=== PATIENT | female | born 2000 | race Caucasian/White ===

== ENCOUNTER 2025-04-06 19:35 | Inpatient (IN) ==
[2025-04-06] MEDS ORDERED: miSOPROStoL 200 MCG TABLET BC PRN (19:42)
[2025-04-06] MEDS ORDERED: METHYLERGONOVINE 0.2 MG/ML VIAL IM PRN (19:42)
[2025-04-06] MEDS ORDERED: OXYTOCIN 10 UNIT/ML VIAL IM PRN (19:42)
[2025-04-06] MEDS ORDERED: CALCIUM CARBONATE CHEW 500 MG TABLET PO PRN (19:42)
[2025-04-06] MEDS ORDERED: LABETALOL 20 MG/4 ML SYRINGE IVP PRN ×3 (19:42)
[2025-04-06] MEDS ORDERED: lidocaine 1% 20 ML MDV ID PRN (19:42)
[2025-04-06] MEDS ORDERED: LACTATED RINGERS 1,000 ML IV PRN (19:42)
[2025-04-06] MEDS ORDERED: ONDANSETRON ODT 4 MG TABLET PO PRN (19:42)
[2025-04-06] MEDS ORDERED: NIFEdipine 10 MG CAPSULE PO PRN (19:42)
[2025-04-06] MEDS ORDERED: TERBUTALINE 1 MG/ML VIAL SUBQ PRN (19:42)
[2025-04-06] MEDS ORDERED: miSOPROStoL 200 MCG TABLET PR PRN (19:42)
[2025-04-06] MEDS ORDERED: OXYTOCIN/SODIUM CHLORIDE 500 ML IV PRN (19:42)
[2025-04-06] MEDS ORDERED: TRANEXAMIC ACID IN NACL 1,000 MG/100 ML BAG IV PRN (19:42)
[2025-04-06] MEDS ORDERED: hydrALAZINE INJ 20 MG/ML VIAL IVP PRN (19:42)
[2025-04-06] MEDS ORDERED: diphenhydrAMINE 25 MG CAPSULE PO PRN (19:42)
[2025-04-06] MEDS: SODIUM CHLORIDE FLUSH 0.9% 10 ML SYRINGE IVP SCH (20:20)
[2025-04-06 20:34] LABS: BASOPHILS % (AUTO) 0.2 %; EOSINOPHILS # (AUTO) 0.2 10^3/uL (0.0-0.7); EOSINOPHILS % (AUTO) 1.5 %; HCT - HEMATOCRIT 35.5 % (37.0-47.0); HGB - HEMOGLOBIN 11.5 g/dL (12.0-16.0); LYMPHOCYTES # (AUTO) 2.1 10^3/uL (1.5-3.5); LYMPHOCYTES % (AUTO) 16.7 %; MEAN CORPUSCULAR HEMOGLOBIN 28.3 pg (27.0-31.0); MEAN CORPUSCULAR HGB CONC 32.4 g/dL (32.0-36.0); MEAN CORPUSCULAR VOLUME 87.4 fL (81.0-99.0); MEAN PLATELET VOLUME 11.7 fL (7.9-10.8); MONOCYTES # (AUTO) 0.9 10^3/uL (0.0-1.0); MONOCYTES % (AUTO) 6.9 %; NEUTROPHILS # (AUTO) 9.3 10^3/uL (1.5-6.6); NEUTROPHILS % (AUTO) 74.3 %; PLT - PLATELET COUNT 251 10^3/uL (130-450); RED BLOOD COUNT 4.06 10^6/uL (4.20-5.40); RED CELL DISTRIBUTION WIDTH 15.3 % (12.0-15.0); WHITE BLOOD COUNT 12.5 x10^3/uL (4.8-10.8)
--- NOTE | 2025-04-06 20:44 | HISTORY & PHYSICAL EXAMINATION ---
Admit History Visit Reason Visit Reason: Other (Induction of labor) Smoking Status: Former smoker Other Maternal History Other Maternal History: HPI: Gisella is a 24 yo at 38w0d who is admitted for induction of labor. has been complicated by IUGR noted on US on 03/10, EFW 6.5%tile. She had a follow up growth US on 04/04 with EFW measuring 18%tile, but BPD, HC, and FL still measuring < 10th%tile, UA dopplers were obtained with elevated doppler at the abdominal cord insertion. Gisella was counseled on repeating UA doppler study and if normal, delaying IOL, vs proceeding with IOL now and she would like to proceed now. Today, Gisella is feeling well. Denies contractions, loss of fluid, vaginal bleeding, and reports good movement. Her is at bedside, flew in from [place] today to be here for IOL, will be here for 1 week. monitoring form, copied from record: LMP: 06/20/2024 CARMEN by LMP: 03/27/2025 US: on 09/15/2024 at 9 wks with CARMEN of 04/20/2025 NOT c/w LMP dating. Final CARMEN: 04/20/2025 IUGR 6.6%tile on 03/10, repeat growth in 3-4 wks. Weekly CRISTÓBAL/UA dopplers/NST. Plan for 38-39wk delivery. Baseline pr:cr elevated at 0.3, no elevated blood pressured. Repeated on 03/16, 0.2. Pre- Weight: 140 BMI: 24.7 Blood type: O- Rhogam given 01/26 mls Antibody: negative CBC: PLT 288 H/H 13.4/39.0 RUB: NOT immune VZV:immune HBsAg: negative HepC: NR RPR/AB-EIA: NR HIV: NR PAP:09/27/24-normal GC/CT: negative HSV: denies Genetic testing:negative Covid: declined/out of season Flu: received this season RSV: 02/23/25 FAS: 2 Placenta: posterior without previa Cord: 3VC CRISTÓBAL: 11.1cm 11.8% EFW: 708g 22.1% 50gm OGCT: 132 3HR GTT: TDAP: 01/26/25 mls Breast Pump: 01/26 Antibody screen: 3rd trimester H/H 10.9/34.2 PLT 305 3rd trimester RPR NR RSV: 02/23/25 GBS: negative Delivery plan: vag del Contraception: declines PE: Vitals signs reviewed in [facility] Gen: NAD Chest: non labored respirations Abd: gravid, non tender. Ext: no LE edema SVE: 1.5/20/-3 Bedside US: cephalic presentation confirmed monitoring: FHTs: 130s bpm baseline, + accel, - decel, mod variability [place]: rare FHTs: Cat 1 Labs: CBC reviewed, CMP and T&S pending A/P: 24 yo at 38w0d admitted for IOL: - IUGR: most recent EFW 2808g, 18%tile, previously 6.5%tile, but with elevated UA doppler. - GBS neg - Rh neg - Rubella non immune - Will start IOL with PO misoprostol 25mcg q 4 hrs. - Pain management per her request, we have discussed options. Abby Aaron MD HPI Current : Vital Signs Temperature 98.1 F 04/06/25 19:57 Pulse Rate 83 04/06/25 19:57 Respiratory Rate 18 04/06/25 19:57 Blood Pressure 129/68 04/06/25 19:57 NST Procedure NST Procedure: NST Procedure Start Time 10:11 Stop Time 10:43 Meds/Allgy Home Medications Ambulatory Orders Medication Instructions Recorded Confirmed vits no.126-ferrous fum tab PO QDAY 12/28/24 04/06/25 28 mg iron-folic acid 800 mcg tablet (Classic ) Allergies Allergies Allergy/AdvReac Type Severity Reaction Status Date / Time No Known Drug Allergies Allergy Verified 03/23/25 11:38 PFSH Active Problems All Active Problems (Updated 04/06/25 @ 20:51 by Abby Aaron MD) Intrauterine growth restriction (IUGR) affecting care of mother, third trimester, single gestation (Acute) Rh negative state in antepartum period (Acute) Supervision of high risk in third trimester (Acute) Surgical History Surgical History [place] teeth extracted Family History Family History (Updated 12/28/24 @ 14:46 by Nadia Galvan RN) Grandfather Diabetes Brother Asthma Mother Depressed Social History Social History Smoking Status: Former smoker Second hand tobacco smoke exposure: No Do you dip or chew tobacco?: No Do you vape?: No Patient requests smoking cessation consult: No Initiate information on smoking cessation: No Living arrangement: At home Living Condition: With spouse/s.o. Relationship: Level: Independent Do you feel safe in your home environment?: Yes Suffered physical, verbal, emotional, or financial abuse?: No ETOH Use: None Substance Use: denies use Are you sexually active?: Yes Control Method: None Occupation: [employer] Service: Yes Dates of Service: Current POLST Patient has POLST: No Physical Abdominal Exam Vital Signs: Temp Pulse Resp BP 98.1 F 83 18 129/68 04/06/25 19:57 04/06/25 19:57 04/06/25 19:57 04/06/25 19:57 Plan for Labor Plan For Labor I expect patient to be DC'd or transferred within 96 hours.: Yes Conclusion/Plan Lab Results 04/06/25 20:18
[2025-04-06 21:00] LABS: ALBUMIN 3.5 g/dL (3.2-5.5); ALBUMIN/GLOBULIN RATIO 1.2 (1.0-2.2); BILIRUBIN,TOTAL 0.2 mg/dL (0.2-1.0); CREATININE 0.6 mg/dL (0.6-1.3); POTASSIUM 3.5 mmol/L (3.5-4.5); TOTAL PROTEIN 6.5 g/dL (6.4-8.9)
[2025-04-06] MEDS: miSOPROStoL 100 MCG TABLET PO SCH (21:07)
--- NOTE | 2025-04-07 08:01 | PROVIDER PROGRESS NOTE ---
Labor Progress Note Uterine Monitoring Uterine Monitoring Mode: positive External toco Contraction Frequency (min/apart): irregular Monitoring Monitor Mode: positive External ultrasound Heart Rate Baseline: 135 Heart Rate Variability: positive Moderate (6-25 bmp) Accelerations: positive Present, 15x15 Decelerations: positive None Labor Progress Note Labor Progress Note/Additional Text: Patient doing well, no acute complaints. Feeling somewhat crampy, no regular contractions. Category 1 tracing. Received 3 doses of misoprostol overnight with last dose at 0510. Callum irregularly. Continue cervical ripening.
[2025-04-07] MEDS: miSOPROStoL 100 MCG TABLET SL SCH (09:29)
--- NOTE | 2025-04-07 11:15 | PHARMACY PROGRESS NOTE ---
Best Possible Medication History Admit Date and Time: 04/06/251941 Home Medications Medication Instructions Recorded Confirmed Type vits no.126-ferrous fum 1 tab PO DAILY 04/07/25 History 28 mg iron-folic acid 800 mcg tablet (Classic ) Processed by: Pharmacy Medications reviewed in ED?: No Medication History completed: Yes Patient Interview: Completed Secondary Source(s): Pharmacy records and Insurance records [facility] Statement: As the person ultimately responsible for medication therapy, providers are able to order a medication from an existing home medication list in [facility] via the "Reconcile Routine" prior to Confirmation of that medication by shipping support. Such practice is discouraged except when the physician, in their clinical judgment, deems that a medical need exists for a medication without regard to previous use.
--- NOTE | 2025-04-07 21:38 | PROVIDER PROGRESS NOTE ---
Labor Progress Note Labor Progress Note Labor Progress Note/Additional Text: FHT 135 beats minute baseline, moderate variability, accelerations present, no decelerations. [place]wey: Irregular Category 1. Status post 6 doses misoprostol. Currently . Consented to cervical ripening balloon which was then placed without complication. 80 mL internally, 80 mL externally with Cook balloon. Plan to start oxytocin. Anticipate amniotomy after removal. Anticipate . Epidural at patient request.
[2025-04-07] MEDS: fentaNYL 100 MCG/2 ML VIAL IVP PRN (21:46)
[2025-04-07] MEDS: ACETAMINOPHEN 500 MG TABLET PO PRN (21:50)
[2025-04-07] MEDS: LACTATED RINGERS 1,000 ML IV SCH (22:28)
[2025-04-07] MEDS: OXYTOCIN/SODIUM CHLORIDE 500 ML IV SCH (22:29)
[2025-04-07] MEDS ORDERED: LIDOCAINE 2%-EPI 1:100000 20 ML MDV ONE (23:20)
[2025-04-07] MEDS ORDERED: ROPIVACAINE 0.2% 200 MG/100 ML BAG EP ONE (23:21)
[2025-04-07] MEDS ORDERED: ePHEDrine 50 MG/ML VIAL IVP PRN (23:49)
--- NOTE | 2025-04-07 23:52 | ANESTHESIA PROCEDURE NOTE ---
Pre-Anesthesia VS, & Labs Diagnosis Surgical Diagnosis:: Active labor Procedure Procedure: vaginal delivery Vitals Vital Signs: Temp Pulse Resp BP 36.7 C 83 18 129/68 04/06/25 19:57 04/06/25 19:57 04/06/25 19:57 04/06/25 19:57 NPO NPO: Other (clear liquids) Is Patient ?: Yes Estimated Due Date:: 04/20/25 Lab Results Current Lab Results: Laboratory Tests 04/06/25 20:18: WBC 12.5 H, RBC 4.06 L, Hgb 11.5 L, Hct 35.5 L, MCV 87.4, MCH 28.3, MCHC 32.4, RDW 15.3 H, Plt Count 251, MPV 11.7 H, Neut # (Auto) 9.3 H, Lymph # (Auto) 2.1, Emmons # (Auto) 0.9, Eos # (Auto) 0.2, Baso # (Auto) 0.0, Absolute Nucleated RBC 0.00, Nucleated RBC % 0.0, Sodium 136, Potassium 3.5, Chloride 106, Carbon Dioxide 22, Anion Gap 8.0, BUN 8, Creatinine 0.6, Estimated GFR (MDRD) 124, Glucose 124 H, Calcium 9.0, Total Bilirubin 0.2, AST 14, ALT 10, Alkaline Phosphatase 166 H, Total Protein 6.5, Albumin 3.5, Globulin 3.0, Albumin/Globulin Ratio 1.2, Blood Type O NEGATIVE, Antibody Screen NEGATIVE Lab results reviewed: Yes 04/06/25 20:18 04/06/25 20:18 Meds/Allgy Home Medications Ambulatory Orders Medication Instructions Recorded Confirmed vits no.126-ferrous fum 1 tab PO DAILY 04/07/25 28 mg iron-folic acid 800 mcg tablet (Classic ) Allergies Allergies Allergy/AdvReac Type Severity Reaction Status Date / Time No Known Drug Allergies Allergy Verified 03/23/25 11:38 PFSH Active Problems All Active Problems Intrauterine growth restriction (IUGR) affecting care of mother, third trimester, single gestation (Acute) Supervision of high risk in third trimester (Acute) Rh negative state in antepartum period (Acute) Surgical History Surgical History [place] teeth extracted Family History Family History (Updated 12/28/24 @ 14:46 by Nadia Galvan RN) Grandfather Diabetes Brother Asthma Mother Depressed Social History Social History Smoking Status: Former smoker Second hand tobacco smoke exposure: No Do you dip or chew tobacco?: No Do you vape?: No Patient requests smoking cessation consult: No Initiate information on smoking cessation: No Living arrangement: At home Living Condition: With spouse/s.o. Relationship: Level: Independent Do you feel safe in your home environment?: Yes Suffered physical, verbal, emotional, or financial abuse?: No ETOH Use: None Substance Use: denies use Are you sexually active?: Yes Control Method: None Occupation: [employer] Service: Yes Dates of Service: Current POLST Patient has POLST: No Anesthesia Exam (Expanded) Exam General: Alert, Oriented x3 and Cooperative Dental: WNL Mouth Openin Fingerbreadth Neck Mobility: Normal Mallampati classification: II Thyromental Distance: 4-6 cm Plan Plan Anesthesia Type: Epidural Consent for Procedure(s) Verified and Reviewed: Yes Code Status: Attempt Resuscitation ASA Classification ASA classification: 2-Mild systemic disease Is this case an emergency?: No
[2025-04-08] MEDS: ROPIVACAINE 0.2% 200 MG/100 ML BAG EP PRN (07:27)
--- NOTE | 2025-04-08 10:29 | PROVIDER PROGRESS NOTE ---
Labor Progress Note Labor Progress Note Labor Progress Note/Additional Text: Patient comfortable with epidural. Consents amniotomy which was performed with a small amount of fluid and blood, likely from cervical ripening balloon. Prior to amniotomy, heart tracing 145 beats per baseline, moderate ability, accelerations present, no decelerations. Contractions every 2 to 4 minutes category 1. Immediately after amniotomy, had a variable deceleration, but resolved with position change. If these become persistent, will consider amnioinfusion. SVE: /-2
[2025-04-08] MEDS: ONDANSETRON 4 MG/2 ML VIAL IVP PRN (10:31)
[2025-04-08] MEDS: SODIUM CHLORIDE FLUSH 0.9% 10 ML SYRINGE IVP PRN (10:32)
[2025-04-08] MEDS ORDERED: SIMETHICONE CHEW 80 MG TABLET PO PRN (17:23)
[2025-04-08] MEDS ORDERED: CALCIUM CARBONATE CHEW 500 MG TABLET PO PRN (17:23)
[2025-04-08] MEDS ORDERED: ONDANSETRON 4 MG/2 ML VIAL IVP PRN (17:23)
--- NOTE | 2025-04-08 17:28 | DELIVERY NOTE ---
Delivery Note Labor Labor: positive Augmented by ARM and Induced by oxytocin Infant Delivery Method Delivery Method: positive Spontaneous vaginal delivery Cervical Ripening Method Cervical Ripening Method: positive Balloon device and Misoprostil Presentation Presentation: positive OA - occiput anterior Nuchal Cord Nuchal Cord: positive Reduced Amniotic Fluid Description Amniotic Fluid Description: positive Clear Laceration Laceration: positive Labial (Right) Suture Suture Type: positive Vicryl Suture Size: positive 4-0 Delivery Outcome Delivery Outcome: positive Livebirth [place]: positive Placed in direct skin contact with mother, Bulb syringe and Jackson used [place] sex: positive Female Cord Cord: positive 3 vessels Placenta Placenta: positive Intact Estimated Blood Loss Estimated Blood Loss (in cc): 400 Post Delivery Events Post Delivery Events: positive No post delivery events Delivery Comments (Free Text/Narrative) Delivery Comments (Free Text/Narrative): Preoperative Diagnoses 38 weeks gestation Intrauterine growth restriction Postoperative Diagnoses Same Status post spontaneous vaginal delivery Delivered live morris Summary Patient admitted for induction of labor for growth restriction with abnormal Dopplers. She was started on misoprostol and received 6 doses. She then received a cervical ripening balloon with oxytocin. She received an epidural for pain control. After removal, she was 6 cm and had amniotomy. Immediately after amniotomy, she had a short course of repetitive variable decelerations that resolved with position changes. IUPC was placed for hypotonic uterine contractions. She progressed until 9 cm and had another round of late decelerations and oxytocin was stopped. She was checked and found to be complete and started to push. While pushing, baby's heart rate recovered, but would have decelerations while pushing. Oxytocin was restarted as contractions spaced out. Delivery Summary: Patient was placed in the dorsal lithotomy position. Upon maternal pushing the head was delivered atraumatically followed by the anterior shoulder, posterior shoulder, then the remainder of the 's body. Nuchal cord was reduced. A female was delivered with APGARS of 7 at 1 minute and 9 at 5 minutes. The infant was placed on its mother's chest . After the cord finished pulsating, the umbilical cord was clamped times two and cut. The placenta delivered intact with three vessel cord. Placenta was sent to pathology. Thirty units of Pitocin were added to the IV fluid and allowed to run freely. Uterine massage was performed until uterus was deemed firm. Upon inspection of the perineum, the patient had a right labial laceration that was bleeding and repaired with a running suture of 4-0 Vicryl. Upon re- inspection the patient was hemostatic. Uterus again massaged and found to be firm. Needle and sponge counts were correct. Patient was stable and allowed to recover in L&D room. was stable and remained in room with mother. weight : 2496 g
[2025-04-08] MEDS: IBUPROFEN 600 MG TABLET PO SCH (18:20)
[2025-04-08] MEDS: WITCH HAZEL/GLYCERIN 1 PAD TOP PRN (18:42)
[2025-04-08] MEDS: LACTATED RINGERS 1,000 ML IV SCH (21:15)
[2025-04-08] MEDS: ACETAMINOPHEN 500 MG TABLET PO SCH (22:04)
--- NOTE | 2025-04-09 09:34 | PROVIDER PROGRESS NOTE ---
Subjective Subjective Subjective: Subjective Patient reports she is doing well. Lochia appropriate. Denies heavy bleeding. Ambulating. Pelvic and abdominal pain well-controlled. Tolerating oral intake. Diet: Regular. Voiding without difficulty. Passing flatus. Denies BM. Patient is bonding with baby in room Breast feeding going well. Denies feeling lightheaded, dizzy or excessively fatigued. Objective General: Alert, oriented, no apparent distress. Cardiovascular: Regular rate. Regular rhythm. Lungs: No increased work of breathing. Abdomen: Uterus firm. Below umbilicus. No guarding or rebound. Extremities: No pain on palpation. No cords palpated. Distal pulses intact. Current Medications Current Medications Current Medications: Current Medications Generic Name Dose Route Start Last Admin Trade Name Freq PRN Reason Stop Dose Admin Acetaminophen 1,000 mg 04/08/25 22:00 04/09/25 05:50 Acetaminophen 500 Mg Tablet PO Not Given Q8HR ALEKS Calcium Carbonate/Glycine 500 mg 04/08/25 17:23 Calcium Carbonate Chew 500 Mg Tablet PO TID PRN Heartburn Diphenhydramine HCl 25 mg 04/06/25 19:42 Diphenhydramine 25 Mg Capsule PO QPM PRN Insomnia Hydralazine HCl 5 - 10 mg 04/06/25 19:42 Hydralazine Inj 20 Mg/Ml Vial IVP Q20M PRN SBP> or= 160 OR DBP> or= 110 Protocol Oxytocin/Sodium Chloride 500 mls @ 999 mls/hr 04/06/25 19:42 Pitocin/Sodium Chloride IV PRN PRN POST- HEMORR PREVENTION Protocol 999 MILLIUNIT/MIN Tranexamic Acid 1,000 mg in 100 mls @ 600 mls/hr 04/06/25 19:42 Tranexamic 1,000 Mg/100ml-Nacl IV Q30M PRN EBL >1200mL and within 3hr Ibuprofen 600 mg 04/08/25 18:00 04/09/25 05:50 Ibuprofen 600 Mg Tablet PO Not Given Q6HR ALEKS Labetalol HCl 20 mg 04/06/25 19:42 Labetalol 20 Mg/4 Ml Syringe IVP .ONCE PRN SBP> or= 160 OR DBP> or= 110 Protocol Labetalol HCl 20 - 40 mg 04/06/25 19:42 Labetalol 20 Mg/4 Ml Syringe IVP Q10M PRN SBP> or= 160 OR DBP> or= 110 Protocol Labetalol HCl 20 - 80 mg 04/06/25 19:42 Labetalol 20 Mg/4 Ml Syringe IVP Q10M PRN SBP> or= 160 OR DBP> or= 110 Protocol Methylergonovine Maleate 0.2 mg 04/06/25 19:42 Methylergonovine 0.2 Mg/Ml Vial IM .ONCE PRN Hemorrhage Misoprostol 600 mcg 04/06/25 19:42 Misoprostol 200 Mcg Tablet BC .ONCE PRN Hemorrhage Nifedipine 10 - 20 mg 04/06/25 19:42 Nifedipine 10 Mg Capsule PO Q20M PRN SBP> or= 160 OR DBP> or= 110 Protocol Ondansetron HCl 4 mg 04/08/25 17:23 Ondansetron 4 Mg/2 Ml Vial IVP Q4HR PRN Nausea / Vomiting Oxytocin 10 unit 04/06/25 19:42 Oxytocin 10 Unit/Ml Vial IM .ONCE PRN Step One if no IV access. Simethicone 80 mg 04/08/25 17:23 Simethicone Chew 80 Mg Tablet PO TID PRN Gas Sodium Chloride 10 ml 04/06/25 19:42 04/08/25 10:32 Sodium Chloride Flush 0.9% 10 Ml Syringe IVP 10 ml PRN PRN Administration NEEDED PER PROVIDER ORDERS Witch Abby/Glycerin 1 pad 04/08/25 17:23 04/08/25 18:42 Witch Abby/Glycerin 1 Pad TOP 1 pad PRN PRN Administration ITCHING Objective Vital Signs/Intake & Output Vital Signs: Vital Signs x48h Temp Pulse Resp BP Pulse Ox 04/09/25 08:10 36.5 C 14 111/59 L 98 04/09/25 05:29 36.8 C 71 16 107/64 98 Intake & Output: Intake & Output 04/06/25 04/07/25 04/08/25 04/09/25 23:59 23:59 23:59 23:59 Intake Total 350 / 350 3820 / 3820 Output Total 1500 / 1500 Balance 350 / 350 2320 / 2320 Weight (kg) 188 lb 9.6 oz Lab Results 04/06/25 20:18 04/06/25 20:18 Other Labs: Lab Results x24hrs 04/09/25 Range/Units 01:53 Blood Type O NEGATIVE Weak D (Du) WEAK-D NEGATIVE Maternal Bleed NEGATIVE (NEGATIVE) Assessment/Plan Problem List (1) care and examination of lactating mother: Impression: Routine care. Dissipate discharge tomorrow. Continue support with breast-feeding. (2) Delivery outcome of morris : Impression: Routine care as above. Qualifiers: outcome: live Qualified Code(s): Z37.0 - Single live (3) Rh negative state in antepartum period: Impression: RhoGAM workup, Rh Ag if indicated.
[2025-04-09] MEDS: RHO(D) IMMUNE GLOBULIN 300 MCG SYRINGE IVP ONE (14:45)
[2025-04-09] MEDS ORDERED: RHO(D) IMMUNE GLOBULIN 300 MCG SYRINGE IVP ONE (15:00)
[2025-04-10 07:44] VITALS: BP 101/54; TEMP 98.2; O2SAT 99
--- NOTE | 2025-04-10 11:06 | Discharge Summary ---
Discharge Summary Admit Date: 04/06/25 Discharge Date: 04/10/25 Discharging Provider: Abby Aaron MD [facility] History of Present Illness: Admission Diagnosis: - SIUP at 38w0 - Asymmetric IUGR (18%tile, previously 6.5&tile) with abnormal UA doppler - GBS neg - Rh neg - Rubella non immune Discharge Diagnosis: - Same, delivered Procedures: , repair of right labial laceration, EBL 400cc Hospital Course: Gisella is a 24 yo who presented at 30w0d for IOL. She underwent cervical ripening with misoprostol followed by cervical ripening balloon and pitocin, followed by amniotomy. She had an uncomplicated . course has been uncomplicated. Condition on Discharge: SUBJECTIVE: day 2 She feels well. Denies pain. The baby is doing well. Baby is feeding via . She is ambulating well, tolerating normal diet, urinating without difficulty. Lochia is reported as light. is at bedside, will go back to [place] on Thursday. OBJECTIVE: Vital signs reviewed GENERAL: NAD CHEST: non labored respirations ABD: soft, non tender, fundus firm EXT: no lower extremity edema; No evidence of DVT LAB & IMAGING STUDIES: See below PLAN: Plan for discharge home with follow up in clinic in 1 week. Reviewed home care instructions and medications. Patient counseled regarding signs and symptoms of infection, excessive bleeding, vaginal rest and activity restrictions. Preeclampsia precautions were reviewed. Discussed that additional support is available in our clinic if needed . ALLERGIES Allergies Allergy/AdvReac Type Severity Reaction Status Date / Time No Known Drug Allergies Allergy Verified 03/23/25 11:38 MEDICATIONS Ambulatory Orders Medication Instructions Recorded Confirmed vits no.126-ferrous fum 1 tab PO DAILY 04/07/25 28 mg iron-folic acid 800 mcg tablet (Classic ) PHYSICAL EXAM AT DISCHARGE Vital Signs: Vital Signs x48h Temp Pulse Resp BP Pulse Ox 04/10/25 07:43 98.2 F 74 16 101/54 L 99 LABS 04/06/25 20:18 04/06/25 20:18 Discharge Plan Discharge Patient Disposition: Home, Self Care Prescriptions: Continued Classic 28 mg iron- 800 mcg tablet 1 tab PO DAILY Print Language: Israeli Patient Instructions: Vaginal After, Childbirth Breast Care, Vaginal Incis Care, Depression , Change Expect Parents, Smoke Free After Preg Follow-up Care: Abby Aaron MD [Primary Care Provider] -
[2025-04-10] MEDS ORDERED: MEASLES,MUMPS & RUBELLA VACC 0.5 ML VIAL SUBQ ONE (13:52)
[2025-04-10] MEDS: MEASLES,MUMPS & RUBELLA VACC 0.5 ML VIAL SUBQ ONE (14:00)
--- NOTE | 2025-04-10 14:29 | Labor Flowsheet ---
Labor Flowsheet Datetime Report Generated by CPN: 04/10/2025 14:28 Datetime: 04/10/2025 07:38 VITAL SIGNS NBP Sys/Anais/Mean (mmHg): 101 : 54 : 65 Pulse: 74 Datetime: 04/09/2025 14:54 SpO2 (%): 96 Datetime: 04/08/2025 19:00 PAIN Pain Scale: 4 Pain Presence: Intermittent Pain Type: Burning; Cramping Pain Location: Abdomen; Perineum Pain Relief Measures: Pain Medication Given Datetime: 04/08/2025 17:45 Respirations: 17 Temperature (C): 37.2 Temperature Route: Oral Datetime: 04/08/2025 17:11 MEDICATIONS Pitocin (milliunits): Increased to @ 999 Medication Comments: PP pitocin Datetime: 04/08/2025 17:09 Stage of : Recovery Datetime: 04/08/2025 17:05 FHR Baseline Rate : 95 Pushing Progress: with Pushing Datetime: 04/08/2025 17:04 LaborFlag: Labor Datetime: 04/08/2025 17:00 UTERINE ACTIVITY Monitor Mode: Internal Frequency (min): 2-7 Duration (sec): 40-70 Pattern: Normal: <= 5 Contractions in 10 Minutes ASSESSMENT A Monitor Mode: External US Variability: Moderate 6-25 bpm Accelerations: 15X15 Decelerations: Late; Variable Category: Category II Datetime: 04/08/2025 16:45 Quality: Moderate Resting Tone (Palpate): Relaxed Pitocin Checklist: At Least 1 Acceleration of 15 bpm x 15 Seconds in 30 Minutes or Adequate Variability; No More than 1 Late Deceleration Occurred in Past 30 Minutes; No More than 2 Variable Decelerations > 60 Seconds in Duration and decreasing >60 bpm in 30 minutes; No More than 5 Uterine Contractions in 10 Minutes for any 20 Minute Interval; Uterus Palpates Soft between Contractions; IUPC Resting Tone less than 25 mmHg FHR Baseline Changes: Tachycardia Datetime: 04/08/2025 16:30 Comments: RN and MD continuously at bedside STAGE 2 Pushing: Urge to Push Datetime: 04/08/2025 16:19 Pushing Position: Pushing with Contractions; Pushing Lithotomy Datetime: 04/08/2025 16:15 Resting Tone IUP (mmHg): 0-10 Intensity IUP (mmHg): 15-60 [place] Units (mmHg): 205 Actions for Decelerations: Side to Side; Pitocin Off; IV Bolus; Sterile Vaginal Exam; Blood Pressure; Provider Notified Datetime: 04/08/2025 16:12 Vaginal Bleeding: Normal Show Datetime: 04/08/2025 16:10 COMMUNICATION Communication: Provider at Bedside Datetime: 04/08/2025 16:08 Patient Position/Activity: Left Extreme Communication Comments: Late decels. 9cm. can you come in. Datetime: 04/08/2025 16:06 PATIENT CARE IV/Blood Work: IV Bolus Started; IV Bolus Given ml @ 500 Datetime: 04/08/2025 15:46 VAGINAL EXAM Dilatation (cm): 9.0 Effacement (%): 90 Station: 0 Exam by: Stobaugh, RN Datetime: 04/08/2025 15:06 Hygiene: Josefina Care Datetime: 04/08/2025 14:20 Cervix, Consistency: Soft Cervix, Position: Midposition Membrane Comments: Patient c/o rectal pressure and feeling of "pulsing" in her vagina. Normal SVE. No pulsation palpated. Datetime: 04/08/2025 13:45 Contraction Comments: Indeterminate contraction accuracy due to abnormal IUPC tracing just prior to flushing Datetime: 04/08/2025 11:31 Provider Reviewed Strip: Yes Datetime: 04/08/2025 11:02 Patient Care Comments: Positioned for IUPC placement Datetime: 04/08/2025 11:00 Monitor Interventions for UA: Pound Adjusted Datetime: 04/08/2025 10:31 Antiemetics/Antacids: Zofran (mg) @ Datetime: 04/08/2025 10:20 Membranes Rupture Method: Artificial Amniotic Fluid Color: Bloody Amniotic Fluid Amount: Small Amniotic Fluid Odor: None Datetime: 04/08/2025 09:06 Provider Notified (Name): Dr. Corona Notification Reason: Status Update Datetime: 04/08/2025 09:00 Vaginal Exam Comments: small blood clot, 2inch long, 0.5 in width Datetime: 04/08/2025 07:33 Pain Coping: Sleeping Datetime: 04/08/2025 07:31 Monitor Interventions for FHR: Ultrasound Adjusted Datetime: 04/08/2025 07:22 Anesthesia Comments: New bag of ropivicaine hung. no changes made in pump settings except reset rervoir volume. C Stobaugh, RN Datetime: 04/08/2025 00:33 I/O Interventions: Rivera Cath Inserted Datetime: 04/07/2025 23:41 Epidural Procedure Other: Pump Started Datetime: 04/07/2025 23:36 Epidural Procedure: Loading Dose Datetime: 04/07/2025 23:26 PROCEDURE TIME OUT Procedure Verify: Correct Patient Position Epidural Positioning: Sitting Datetime: 04/07/2025 23:21 ANESTHESIA Anesthesia Plans: Epidural Datetime: 04/07/2025 21:24 Procedures: Sterile Vag Exam Datetime: 04/07/2025 19:44 Comfort Measures: Hot Shower/Tub/Spa Datetime: 04/07/2025 19:15 Pain Assessment Comments: pt asleep on the couch Datetime: 04/07/2025 17:37 Pain Goal: 6 Datetime: 04/07/2025 13:39 Cervical Ripening Agents: Cytotec @ Datetime: 04/06/2025 22:45 Membranes Ruptured Date/Time: 04/08/2025 10:20 Datetime: 04/06/2025 21:15 Oxygen Method: Room Air
== END 2025-04-10 14:26 | disposition home or self-care (01) | DRG 807 ==
LOC: FBP 19:35 → WFO 19:35 → FBP 19:37
PROVIDERS: ADMIT Obstetrics & Gynecology; ATTEND Obstetrics & Gynecology
DX: Z3A.38 38 weeks gestation of pregnancy; O76 Abnormality in fetal heart rate and rhythm complicating labor and delivery; Z37.0 Single live birth; O70.0 First degree perineal laceration during delivery; O69.81X0 Labor and delivery complicated by cord around neck, without compression, not applicable or unspecified; O36.5930 Maternal care for other known or suspected poor fetal growth, third trimester, not applicable or unspecified